=== PATIENT | male | born 1990 | race African-American/Black ===

== ENCOUNTER 2017-12-29 21:26 | Emergency (ER) | payer OTHER ==
--- NOTE | 2017-12-29 21:52 | EDM.PDOC ---
ED HPI GENERAL MEDICAL PROBLEM - General Chief Complaint: General Stated Complaint: L THUMB INJURY Time Seen by Provider: 12/29/17 21:40 Source of Information: Reports: Patient. Denies: Old Records History Limitations: Reports: No Limitations - History of Present Illness INITIAL COMMENTS - FREE TEXT/NARRATIVE: The patient was brought to the emergency room via transport vehicle by his safety scientist from [facility] for evaluation of a Workmen's Compensation injury, which occurred at about 20:50 hours this evening. The patient caught his left thumb between 2 pieces of metal with no history of foreign body or previous injury to this digit. His last tetanus booster was in 2015 by his history. He was treated with ice packs with his thumb also washed by the safety scientist prior to arrival to this facility. He is right-handed. He denies any paresthesias, neurological deficits, or other complaints or injuries. No recent history of abdominal pain, heartburn, nausea, diarrhea, melena, gross hematochezia, or any food intolerance, including fatty foods, etc.. The patient also denies any recent fever, cough, wheezing, dyspnea, etc.. Onset: Today, Sudden Onset Date: 12/29/17 Onset Time: 20:50 Duration: Constant Location: Reports: Upper Extremity, Left. Denies: Head, Face, Neck, Chest, Abdomen, Back, Pelvis, Upper Extremity, Right, Lower Extremity, Left, Lower Extremity, Right, Radiates to Quality: Reports: Sharp, Throbbing Severity: Severe Improves with: Reports: None Worsens with: Reports: Movement Context: Reports: Trauma (As above) Associated Symptoms: Denies: Confusion, Chest Pain, Cough, Diaphoresis, Fever/ Chills, Headaches, Loss of Appetite, Nausea/Vomiting, Shortness of Breath, Syncope, Weakness Treatments SOLOIST DANCER: Reports: Cold Therapy, Other (see below) (As above) Left 1-Thumb Pain Score (Numeric/FACES): 10 - Related Data Allergies Allergy/AdvReac Type Severity Reaction Status Date / Time No Known Allergies Allergy Verified 12/29/17 21:36 Home Meds: Home Meds . [No Known Home Meds] 12/29/17 [History] Past Medical History Musculoskeletal History: Reports: None. Denies: Arthritis, Fracture, Gout, RA, SLE Neurological History: Reports: Headaches, Chronic Social & Family History - Tobacco Use Smoking Status *Q: Never Smoker Tobacco Use Within Last Twelve Months: No Used Tobacco, but Quit: No Smoking Cessation Information Provided To Patient: No Second Hand Smoke Exposure: No Second Hand Smoke Education Provided: No - Living Situation & Occupation Living situation: Reports: Single Occupation: Employed ([employer]) ED ROS GENERAL - Review of Systems Review Of Systems: ROS reveals no pertinent complaints other than HPI. ED EXAM, GENERAL - Physical Exam Exam: See Below Exam Limited By: No Limitations General Appearance: Alert, WD/WN, No Apparent Distress Head: Atraumatic, Normocephalic Neck: Normal Inspection, Supple, Non-Tender, Full Range of Motion. No: Lymphadenopathy (L), Lymphadenopathy (R), Thyromegaly Respiratory/Chest: No Respiratory Distress, Lungs Clear, Normal Breath Sounds, No Accessory Muscle Use, Chest Non-Tender. No: Pleural Rub, Retractions Cardiovascular: Normal Peripheral Pulses, Regular Rate, Rhythm, No Edema, No Gallop, No JVD, No Murmur, No Rub. No: Gallop/S3, Gallop/S4, Friction Rub Peripheral Pulses: 2+: Radial (L), Radial (R) GI/Abdominal: Normal Bowel Sounds, Soft, Non-Tender, No Organomegaly, No Distention, No Abnormal Bruit, No Mass, Pelvis Stable. No: Guarding (Male) Exam: Deferred Rectal (Males) Exam: Deferred Back Exam: Normal Inspection, Full Range of Motion. No: CVA Tenderness (L), CVA Tenderness (R), Muscle Spasm Extremities: No Pedal Edema, Normal Capillary Refill, Joint Swelling (Moderate swelling of the palmar aspect of the left thumb with moderate localized palpation pain and pain with movement and decreased range of motion but no evidence of dislocation, joint involvement, deformity, etc.), Limited Range of Motion, Other (0.5 cm superficial laceration over the palmar portion of the mid distal phalanx with additional 12 millimeter superficial abrasions 2 over the periungal regions with no evidence of foreign body, subungual hematoma, or need of laceration repair). No: Arm Pain Neurological: Alert, Oriented, CN II-XII Intact, Normal Cognition, Normal Gait, No Motor/Sensory Deficits Psychiatric: Normal Affect, Normal Mood Skin Exam: Wound/Incision (As above). No: Diaphoretic, Ecchymosis, Increased Warmth, Lymphangitis Lymphatic: No Adenopathy Course - Vital Signs Last Recorded V/S: Last Vital Signs Temp 37.0 C 12/29/17 21:27 Pulse 58 L 12/29/17 21:27 Resp 16 12/29/17 21:27 BP 141/83 H 12/29/17 21:27 Pulse Ox 100 12/29/17 21:27 Vital Signs - 24 hr 12/29/17 21:27 Temperature [ 37.0 C Temporal] Pulse, 58 L Peripheral [ Right] Respiratory 16 Rate Blood Pressure 141/83 H [Right Upper Arm] O2 Sat by Pulse 100 Oximetry - Orders/Labs/Meds Orders: Active Orders 24 hr Category Date Time Status Fingers Thumb Lt FA [CR] Stat Exams 12/29/17 21:40 Ordered Durable Medical Equipment for Discharge [DME for Oth 12/29/17 22:25 Ordered Discharge] [COMM] Routine Obtain Past Medical Record [OM.PC] Routine Oth 12/29/17 21:53 Ordered Labs: None Meds: Medications Discontinued Medications Generic Name Dose Route Start Last Admin Trade Name Ana Lilia PRN Reason Stop Dose Admin Ibuprofen 600 mg 12/29/17 22:06 12/29/17 22:12 Motrin PO 12/29/17 22:07 600 mg ONETIME ONE Administration Neomycin/Polymyxin/Bacitracin 1 each 12/29/17 22:25 Triple Antibiotic Oint TOP 12/29/17 22:26 ONETIME ONE - Radiology Interpretation Free Text/Narrative:: X-rays of the left thumb, complete, shows no evidence of foreign body, fracture , dislocation, etc. Soft tissue swelling noted. Departure - Departure Time of Disposition: 22:40 Disposition: Home, Self-Care 01 Condition: Good Clinical Impression: Laceration, Contusion - Discharge Information *PRESCRIPTION DRUG MONITORING PROGRAM REVIEWED*: Not Applicable *COPY OF PRESCRIPTION DRUG MONITORING REPORT IN PATIENT DEEDEE: Not Applicable Instructions: Contusion, [id number], Laceration Care, Adult, [id number] Referrals: PCP,None [Primary Care Provider] - Forms: ED Department Discharge Additional Instructions: 1. Followup with your regular provider in 7 days as directed. X-rays of your left thumb may be repeated depending on your symptoms at follow-up. Bring these discharge instructions with you to that visit. 2. Antibacterial soap wash/soak with subsequent antibacterial dressing such as Neosporin, etc. as directed 2 times per day until the wound or laceration site completely heals. Keep the area clean and dry with activity restrictions as discussed. 3. Tylenol 650 mg by mouth every 4 hours and/or OTC ibuprofen 2-3 tabs by mouth every 6 hours with food as directed./needed. Next dose of ibuprofen in 6 hours secondary to medications given in the emergency room. 4. Work excuse- See Form 5. Immediately after this visit verify that your cellular telephone's voicemail has been activated and is empty. Also verify that your home telephone 's answering machine is operating properly and has space to receive messages. Note that it is sometimes necessary for us to be able to contact you at a later date to discuss your medical care. 6. Ice packs as discussed/needed 7. You may use your finger splint as needed/discussed - Problem List & Annotations (1) Contusion SNOMED Code(s): 422642486 Code(s): T14.8XXA - OTHER INJURY OF UNSPECIFIED BODY REGION, INITIAL ENCOUNTER Status: Acute Priority: High Onset Date: 12/29/17 Annotation/ Comment:: Moderate left thumb contusion with no evidence of fracture as above. Workmen's Compensation and [employer] work excuse forms were completed. Activity restrictions, etc. were discussed. Patient was provided a plastic thumb splint to be applied on an as-needed basis later after the swelling decreases. Ice packs were applied in the emergency room. Various therapeutic options were discussed with the patient, who is requesting well ibuprofen rather than IM Toradol. Close follow-up by regular provider. Qualifiers: Encounter type: initial encounter Contusion area: finger Finger: thumb Damage to nail status: without damage Laterality: left Qualified Code(s): S60.012A - Contusion of left thumb without damage to nail, initial encounter (2) Laceration SNOMED Code(s): 930665834 Code(s): NXR7823 - Status: Acute Priority: High Onset Date: 12/29/17 Annotation/Comment:: Minor superficial lacerations as above none of them requiring laceration repair. Wound care activity restrictions, etc. discussed. Laceration sites were soaked in Betadine solution upon his arrival to the emergency room with Neosporin dressing placed by the nurse. Tetanus booster is up-to-date as above. - Problem List Review Problem List Initiated/Reviewed/Updated: Yes - My Orders Last 24 Hours: My Active Orders 12/29/17 21:40 Fingers Thumb Lt FA [CR] Stat 12/29/17 21:53 Obtain Past Medical Record [OM.PC] Routine 12/29/17 22:25 Durable Medical Equipment for Discharge [DME for Discharge] [COMM] Routine - Assessment/Plan Last 24 Hours: My Active Orders 12/29/17 21:40 Fingers Thumb Lt FA [CR] Stat 12/29/17 21:53 Obtain Past Medical Record [OM.PC] Routine 12/29/17 22:25 Durable Medical Equipment for Discharge [DME for Discharge] [COMM] Routine Assessment:: As above Plan: As above. Extensive precautions were given to the patient, who is in agreement with the treatment plan. See Patient Instructions for further treatment and plan.
[2017-12-29] MEDS: Ibuprofen 600 MG Tab PO ONE (22:12)
[2017-12-29] MEDS: Bacitracin/Neomycin/Polymyxin B Oint 0.9 GM U/D Packet TOP ONE (22:30)
== END 2017-12-29 22:40 | disposition home or self-care (01) ==
LOC: LL.ED 21:26
DX: S61.012A Laceration without foreign body of left thumb without damage to nail, initial encounter (principal); W23.1XXA Caught, crushed, jammed, or pinched between stationary objects, initial encounter
CPT/HCPCS: 29130; 73140-FA; 99283; A9270-GY